=== PATIENT | male | born 1995 | race Caucasian/White ===

== ENCOUNTER 2023-07-15 08:05 | Emergency (ER) | payer OTHER ==
[2023-07-15] MEDS ORDERED: Lidocaine 1% w/Epinephrine 1:100K 20 ML VIAL ONE (08:33)
== END 2023-07-15 09:33 ==
LOC: ERS 08:05 → EEVIPCON 08:05 → ERS 09:33
DX: S51.812A Laceration without foreign body of left forearm, initial encounter (principal); S51.811A Laceration without foreign body of right forearm, initial encounter; R45.851 Suicidal ideations; X78.8XXA Intentional self-harm by other sharp object, initial encounter
CPT/HCPCS: 12006